=== PATIENT | female | born 1940 | race Hispanic/Latino ===

== ENCOUNTER 2017-09-23 19:40 | Inpatient (IN) | payer OTHER ==
[~2017-09-23] VITALS: Ht 165.1 cm; Wt 72.5 kg
[2017-09-23 20:08] LABS: HEMOGLOBIN 13.1 G/DL (11.9-15.5); MCH 31.8 PG (29.0-34.0); MCHC 33.6 G/DL (30.0-36.0); MCV 94.7 FL (83-99); PLATELET COUNT 261 K/uL (156-360); RBC DIS.WIDTH-CV 13.8 % (11.8-14.6); RED BLOOD COUNT 4.12 M/uL (3.80-5.20); WHITE BLOOD COUNT 8.6 K/uL (4.1-10.2)
[2017-09-23 20:15] LABS: INTER. NORMALIZED RATIO 0.9
[2017-09-23 20:18] LABS: PTT 27.8 SEC (25-37)
[2017-09-23 20:23] LABS: AMYLASE 60 IU/L (1-118); CHLORIDE 107 mEq/L (99-109); SODIUM 145 mEq/L (136-147)
[2017-09-23 20:24] LABS: GLUCOSE 148 mg/dL (70-99)
[2017-09-23 20:28] LABS: CREATININE 1.2 mg/dL (0.6-1.3); GFR ESTIMATE (CALCULATED) 46 mL/min/
[2017-09-23 20:29] LABS: UREA NITROGEN (BUN) 18 mg/dL (9-23)
[2017-09-23 20:31] LABS: LIPASE 147 U/L (1.0-51.0)
[2017-09-23 20:40] LABS: TROP-I INTERPRETATION NEGATIVE; TROPONIN-I 0.01 ng/mL (0.0-0.30)
[2017-09-23 23:29] LABS: COCAINE NEGATIVE (150 ng/mL); PHENCYCLIDINE NEGATIVE (25 ng/mL); THC CANNABINOIDS NEGATIVE (50 ng/mL)
[2017-09-23 23:30] LABS: AMPHETAMINE NEGATIVE (500 ng/mL); BARBITURATES NEGATIVE (200 ng/mL); BENZODIAZEPINES NEGATIVE (150 ng/mL); BUPRENORPHINE NEGATIVE (10 ng/mL); METHADONE NEGATIVE (200 ng/mL); METHAMPHETAMINE NEGATIVE (500 ng/mL); OPIATES (MORPHINE) NEGATIVE (100 ng/mL); OXYCODONE NEGATIVE (100 ng/mL); PROPOXYPHENE NEGATIVE (300 ng/mL); TRICYCLIC ANTIDEPRESSANTS NEGATIVE (300 ng/mL)
[2017-09-24] MEDS ORDERED: PRAVACHOL40 MG PO (02:13)
[2017-09-24] MEDS ORDERED: LEVO-T50 MCG PO (02:14)
[2017-09-24] MEDS ORDERED: PRINIVIL20 MG PO (02:15)
[2017-09-24 02:20] VITALS: BP 165/72
[2017-09-24 03:34] LABS: HDL CHOLESTEROL 56 MG/DL (Desirable>=50); LDL CHOLESTEROL 110 mg/dL (Desirable<100); NON-HDL CHOLESTEROL 148 mg/dL (Desirable<160); TOTAL CHOLESTEROL 204 mg/dL (Desirable<200); TRIGLYCERIDES 192 MG/DL (Normal: <150)
[2017-09-24 05:57] LABS: HEMATOCRIT 36.6 % (36.0-46.0); MCHC 32.8 G/DL (30.0-36.0); MCV 94.6 FL (83-99); PLATELET COUNT 239 K/uL (156-360); RBC DIS.WIDTH-CV 13.8 % (11.8-14.6); RBC DIS.WIDTH-SD 47.6 % (39-53); RED BLOOD COUNT 3.87 M/uL (3.80-5.20); WHITE BLOOD COUNT 7.3 K/uL (4.1-10.2)
[2017-09-24 06:24] LABS: ALBUMIN 3.5 G/DL (3.2-4.8); ALKALINE PHOSPHATASE 72 IU/L (3-129); ALT (GPT) 9 IU/L (3-49); AST (GOT) 15 IU/L (2-34); CHLORIDE 105 MEQ/L (99-109); CREATININE 0.9 MG/DL (0.6-1.3); GFR ESTIMATE (CALCULATED) > 59 mL/min/; LIPASE 9 U/L (1.0-51.0); POTASSIUM 4.2 MEQ/L (3.7-5.4); SODIUM 139 MEQ/L (136-147); TOTAL BILIRUBIN 0.9 MG/DL (0.0-1.0); TOTAL PROTEIN 5.9 G/DL (6.4-8.3); UREA NITROGEN (BUN) 16 mg/dL (9-23)
[2017-09-24 06:34] LABS: GLUCOSE 94 mg/dL (70-99)
[2017-09-24 07:35] VITALS: BP 136/79
[2017-09-24 08:25] LABS: THYROTROPIN (TSH) 2.4 MIU/L (0.4-5.5)
[2017-09-24 12:08] VITALS: BP 146/67
[2017-09-24 12:39] LABS: HEMOGLOBIN A1c (GLYCOHEMOGLOB) 5.8 % (Below 5.7)
[2017-09-24 16:35] VITALS: BP 161/79
[2017-09-24 19:41] VITALS: BP 130/65
[2017-09-24 23:12] VITALS: BP 150/70
[2017-09-25 03:49] VITALS: BP 132/67
[2017-09-25 07:28] VITALS: BP 143/72
[2017-09-25 11:27] VITALS: BP 135/65
[2017-09-25] MEDS ORDERED: ASPIRIN EC325 MG PO (14:51)
[2017-09-25] MEDS ORDERED: LISINOPRIL10 MG PO (14:51)
== END 2017-09-25 17:16 | disposition home or self-care (01) | DRG 66 ==
LOC: EME 19:40 → EDOF 09-24 00:56 → ENRESERV 09-24 01:01 → 5SOUTH 09-24 01:57 → ENPENDDIS 09-25 15:02 → 5SOUTH 09-25 17:16
PROVIDERS: Emergency Medicine Emergency Medical Services; Physician Assistant
DX: I63.511 Cerebral infarction due to unspecified occlusion or stenosis of right middle cerebral artery (principal); R47.1 Dysarthria and anarthria; R29.702 NIHSS score 2; R74.8 Abnormal levels of other serum enzymes; I10 Essential (primary) hypertension; E78.5 Hyperlipidemia, unspecified; E03.9 Hypothyroidism, unspecified; Z82.3 Family history of stroke; Z82.5 Family history of asthma and other chronic lower respiratory diseases
CPT/HCPCS: 70450; 70496; 70498; 70551; 71045; 80047; 80048; 80053; 80061; 82150; 83036; 83690; 84443; 84484; 85027; 85610; 85730; 92523 GN; 93306; 99281; 99285; J1644; J7030

== ENCOUNTER 2017-10-20 21:40 | Observation (INO) | payer OTHER ==
[~2017-10-20] VITALS: Ht 165.1 cm; Wt 75.2 kg
[~2017-10-20 21:40] MED LIST: ASPIRIN EC325 MG PO; LEVO-T50 MCG PO; LISINOPRIL10 MG PO; PRAVACHOL40 MG PO; PRINIVIL20 MG PO
[2017-10-20 22:40] LABS: HEMATOCRIT 36.8 % (36.0-46.0); HEMOGLOBIN 12.6 G/DL (11.9-15.5); MCH 32.1 PG (29.0-34.0); MCHC 34.2 G/DL (30.0-36.0); MCV 93.9 FL (83-99); PLATELET COUNT 202 K/uL (156-360); RBC DIS.WIDTH-CV 13.5 % (11.8-14.6); RBC DIS.WIDTH-SD 46.5 % (39-53); RED BLOOD COUNT 3.92 M/uL (3.80-5.20); WHITE BLOOD COUNT 7.6 K/uL (4.1-10.2)
[2017-10-20 22:50] LABS: ALBUMIN 3.8 g/dL (3.2-4.8); CHLORIDE 104 mEq/L (99-109); POTASSIUM 3.9 mEq/L (3.7-5.4); SODIUM 139 mEq/L (136-147)
[2017-10-20 22:52] LABS: GLUCOSE 119 mg/dL (70-99); PTT 29.7 SEC (25-37); TOTAL PROTEIN 6.6 g/dL (6.4-8.3)
[2017-10-20 22:54] LABS: TOTAL BILIRUBIN 1.3 mg/dL (0.0-1.0)
[2017-10-20 22:56] LABS: ALKALINE PHOSPHATASE 75 IU/L (3-129); CREATININE 0.8 mg/dL (0.6-1.3); GFR ESTIMATE (CALCULATED) > 59 mL/min/
[2017-10-20 22:57] LABS: UREA NITROGEN (BUN) 13 mg/dL (9-23)
[2017-10-20 22:58] LABS: AST (GOT) 19 IU/L (2-34)
[2017-10-20 22:59] LABS: ALT (GPT) 12 IU/L (3-49); LIPASE 9 U/L (1.0-51.0)
[2017-10-20 23:03] LABS: TROP-I INTERPRETATION NEGATIVE; TROPONIN-I < 0.01 ng/mL (0.0-0.30)
[2017-10-21] MEDS ORDERED: PLAVIX75 MG PO (00:26)
[2017-10-21 00:32] LABS: APPEARANCE CLEAR ((CLEAR)); BILIRUBIN NEGATIVE; BLOOD SMALL; COLOR YELLOW ((YELLOW)); GLUCOSE (STRIP) NEGATIVE; KETONES 5; LEUKOCYTES NEGATIVE; NITRITE NEGATIVE; PROTEIN (STRIP) NEGATIVE; SPECIFIC GRAVITY 1.011 (1.000-1.030)
[2017-10-21 00:35] LABS: BACTERIA NONE SEEN /HPF; EPITHELIAL CELLS RARE /HPF; MUCUS NONE SEEN /LPF; RED BLOOD CELLS 20-30 /HPF (0-5); UCUL ADDED? NO; WHITE BLOOD CELLS 0-5 /HPF (0-5)
[2017-10-21 04:14] VITALS: BP 134/62
[2017-10-21 07:46] VITALS: BP 107/54
== END 2017-10-21 16:39 | disposition home or self-care (01) ==
LOC: EME → EDBD 21:40 → EDOF 10-21 01:46 → 4SOUTH 10-21 01:46 → EDOF 10-21 01:46 → ENRESERV 10-21 01:51 → 4SOUTH 10-21 03:02
PROVIDERS: Emergency Medicine
DX: R51 Headache (principal); I10 Essential (primary) hypertension; E78.5 Hyperlipidemia, unspecified; E03.9 Hypothyroidism, unspecified; I69.398 Other sequelae of cerebral infarction; Z79.02 Long term (current) use of antithrombotics/antiplatelets; Z79.82 Long term (current) use of aspirin; M81.0 Age-related osteoporosis without current pathological fracture; Z90.710 Acquired absence of both cervix and uterus; Z82.3 Family history of stroke
CPT/HCPCS: 70450; 70486; 70551; 71045; 80053; 81003; 83690; 84484; 85027; 85610; 85651; 85730; 92523 GN; 92610 GN; 93005; 99281; 99285; G0378; G8978 GP CI; G8979 GP CI; G8987 GO CI; G8988 GO CH; G8996 GN CH; G8997 GN CH; G8998 GN CH; J0780; J1200; J1644; J7030